=== PATIENT | female | born 1945 | race Hispanic/Latino ===

== ENCOUNTER 2017-07-03 13:51 | Emergency (ER) | payer SELFPAY ==
[2017-07-03 14:12] VITALS: BP 148/72
[2017-07-03 14:45] LABS: Anion Gap 20 mmol/L; BUN/Creatinine Ratio 20; Blood Urea Nitrogen 22 mg/dL (7-17); Calcium 8.8 mg/dL (8.4-10.2); Carbon Dioxide 23 mmol/L (22-30); Chloride 99.9 mmol/L (98-107); Glucose 190 mg/dL (65-100); Potassium 4.4 mmol/L (3.6-5.0); Sodium 138 mmol/L (137-145)
[2017-07-03 14:58] LABS: Basophils % (Auto) 1.2 % (0.0-1.8); Eosinophils % (Auto) 3.3 % (0.0-4.3); Hematocrit 37.5 % (30.3-42.9); Mean Corpuscular HGB Conc 32 % (30-34); Mean Corpuscular Hemoglobin 28 pg (28-32); Mean Corpuscular Volume 86 fl (79-97); Platelet Count 495 K/mm3 (140-440); Red Blood Count 4.35 M/mm3 (3.65-5.03); Red Cell Distribution Width 15.4 % (13.2-15.2); White Blood Count 10.1 K/mm3 (4.5-11.0)
== END 2017-07-03 14:15 | disposition left against medical advice (07) ==
LOC: ED 13:51
DX: R07.9 Chest pain, unspecified (principal); Z53.21 Procedure and treatment not carried out due to patient leaving prior to being seen by health care provider
CPT/HCPCS: 36415; 80048; 84484; 85025; 93005; 93010

== ENCOUNTER 2018-02-06 06:30 | Day surgery (SDC) | payer MEDICARE ==
[~2018-02-06 06:30] MED LIST: TETRACAINE 0.5% OS PRN
[2018-02-06] MEDS: MYDRIACYL OS SCH ×3 (07:30→07:40)
[2018-02-06] MEDS: AK-Dilate OS SCH ×3 (07:30→07:40)
[2018-02-06] MEDS: VIGAMOX OS SCH ×3 (07:30→07:40)
[2018-02-06] MEDS ORDERED: VERSED ONE ×2 (07:32→09:16)
--- NOTE | 2018-02-06 07:48 | Anesthesia Consultation ---
Anesthesia Consult and Med Hx Date of service: 02/06/18 - Airway Anesthetic Teeth Evaluation: Poor ROM Head & Neck: Adequate Mental/Hyoid Distance: Adequate Mallampati Class: Class I Intubation Access Assessment: Good - Pulmonary Exam CTA: Yes - Cardiac Exam Cardiac Exam: RRR - Pre-Operative Health Status ASA Pre-Surgery Classification: ASA3 Proposed Anesthetic Plan: MAC - Pulmonary Hx Smoking: Yes (DOWN TO 3CIG/DAY, STARTED AT AGE 10) COPD: Yes - Cardiovascular System Hx Hypertension: Yes (2004) - Other Systems Hx Alcohol Use: No Hx Substance Use: Yes (MARIJUANA) - Additional Comments Anesthesia Medical History Comments: NAC
--- NOTE | 2018-02-06 07:49 | Anesthesia Day of Surgery ---
Anesthesia Day of Surgery - Day of Surgery Patient Examined: Yes Patient H&P Reviewed: Yes Patient is NPO: Yes
[2018-02-06] MEDS ORDERED: DIAMOX PO NR (09:34)
--- NOTE | 2018-02-06 09:35 | Operative Report ---
Operative Report Operative Report: PATIENT'S NAME: DATE OF : DATE OF SURGERY: 02/06/2018 PREOPERATIVE DIAGNOSIS: Cataract left eye POSTOPERATIVE DIAGNOSIS: Same OPERATIVE PROCEDURE: Phacoemulsification with intraocular lens implantation, left eye SURGEON: Didi Toledo M.D. PATTERN CHANGER SURGEON: Hero Lens: SA60 WF 19.5 D ANESTHESIA: Monitored anesthesia care in combination with topical and intracameral anesthesia because of the established specific risk of reflux, arrhythmias, or anxiety attacks associated with ocular manipulation, as well as the difficulty of the executive director of nursing to manage such potentially catastrophic events while simultaneously attempting to complete the surgical procedure and was deemed necessary for the patient's safety to have an Rn Transport present during the procedure whenever possible. An Rn Transport was utilized to regulate the intravenous sedation of the patient so the patient was cooperative yet not asleep in order for the patient to successfully maintain fixation of the eye on the operating light of the microscope. COMPLICATIONS: Anterior capsular rent at 3:00 No blood loss. ALLERGIES: Penicillin PROGNOSIS: Excellent INDICATIONS FOR SURGERY: The patient is undergoing surgery in the hopes of eliminating or improving these visual difficulties. PROCEDURE: After arriving at the surgery center, the patient was given topical anesthetic and dilating drops, as noted in the record. The patient was then taken into the operating room and given more anesthetic drops. The eyelids , lashes, and lid margins were scrubbed with Betadine solution, and the patient was draped. The Nurse Rn Transport administered IV sedation and monitored the patient during the procedure. The eye was then fixated with a 0.12, and a stab incision was made in the peripheral clear cornea into the anterior chamber. This was made on my left side. Viscoelastic was next used to fill the anterior chamber. The eye was once again fixated with the 0.12 forceps and a keratome was used make an incision in clear cornea peripherally on my right hand side temporally. The capsule forceps were used to open the central anterior capsule and then make a continuous round capsulotomy. Hydrodissection was carried out utilizing a cannula and balanced salt solution to delineate the cortical material from the capsule and the nucleus from the cortical material. The phaco tip was introduced into the eye and used to remove the anterior cortical material in the area of the capsulotomy. Then the phaco tip was buried into the nucleus, and a chopping instrument was introduced into the eye and used to provide countertraction in the nucleus between this instrument and the phaco tip fracturing the nucleus. This procedure was repeated multiple times, providing multiple small segments of the lens, and then the phaco tip was used to remove each of these segments. An I/A tip was then used to remove the remaining cortex. The anterior chamber was refilled with viscoelastic. An one-piece, acrylic intraocular lens was then placed into an inserting cartridge. The tip of the inserting cartridge was introduced into the keratome incision and into the anterior chamber. The implant was gently advanced through the cartridge and into the eye, where it unfolded, and both haptics were placed in the capsular bag, where it centered nicely and appeared to be well fixated. After placement of the intraocular lens, the I~and~A handpiece was placed back into the eye and used to remove the viscoelastic, including viscoelastic that was behind the optic of the intraocular lens. The anterior chamber was then filled with balanced salt solution, and hydration of the wound was used to cause swelling of the wound and more appropriate watertight closure. When the wound was found to be firm, the patient was asked to comment on how bright the light was. If there was no light perception at all or if the light was substantially dimmer than during the rest of the surgery, the amount of fluid in the eye was decompressed to lower the intraocular pressure until the patient could see the bright light again. This was done to avoid any damage or decreased blood flow to the optic nerve. MEDICATIONS APPLIED AT END OF SURGERY: One drop of Pred Forte and Vigamox The patient was given a shield to wear at night and was instructed not to rub or push on the eye. DISCHARGE SUMMARY: The patient was released in stable condition. The patient and those with the patient were given a written sheet of postoperative instructions and counseling on any abnormal laboratory studies. The patient is to see us tomorrow for follow-up in the office and is to call immediately for any difficulties. Didi Toledo M.D. Date
--- NOTE | 2018-02-06 09:36 | Short Stay Summary ---
Short Stay Documentation Date of service: 02/06/18 - History H&P: obtained from office - Allergies and Medications Current Medications: Allergies Penicillins Allergy (Verified 02/05/18 12:01) Anaphylaxis Home Medications Medication Instructions Recorded Confirmed Last Taken Type FLUoxetine HCL [PROzac] 40 mg PO QDAY 02/05/18 02/05/18 02/06/18 05:30 History Gabapentin [Neurontin] 300 mg PO Q8HR 02/05/18 02/06/18 02/06/18 05:30 History Hydroxyzine HCl 25 mg PO DAILY 02/05/18 02/05/18 02/06/18 05:30 History Metformin HCl [Glucophage] 500 mg PO BID 02/05/18 02/06/18 02/05/18 History amLODIPine [Norvasc] 5 mg PO DAILY 02/05/18 02/05/18 02/06/18 05:30 History Active Medications Acetazolamide (Diamox) 500 mg PO ONCE ONE Stop: 02/06/18 09:35 Moxifloxacin HCl (Vigamox) 1 drops OS Q5MIN JOANNE Stop: 02/06/18 19:00 Last Admin: 02/06/18 07:40 Dose: 1 drops Phenylephrine HCl (Ak-Dilate) 1 drops OS Q5MIN JOANNE Stop: 02/06/18 19:00 Last Admin: 02/06/18 07:40 Dose: 1 drops Prednisolone Acetate (Pred Forte 1%) 1 drops OS QID JOANNE Tetracaine HCl (Tetracaine 0.5%) 1 drops OS Q5M PRN PRN Reason: Analgesia Stop: 02/06/18 19:00 Last Admin: 02/06/18 07:30 Dose: 1 drops Tropicamide (Mydriacyl) 1 drops OS Q5MIN JOANNE Stop: 02/06/18 19:00 Last Admin: 02/06/18 07:40 Dose: 1 drops - Brief post op/procedure progress note Date of procedure: 02/06/18 Pre-op diagnosis: left cataract Post-op diagnosis: same Anesthesia: MAC, local Surgeon: JOSE MIGUEL NICHOLE Estimated blood loss: none Pathology: none Condition: stable - Disposition Condition at discharge: Good Disposition: DC-01 TO HOME OR SELFCARE - Discharge Diagnoses (1) Nuclear sclerosis of left eye Status: Resolved Short Stay Discharge Plan Follow up with: AISLINN KAUR [Other] - 7 Days
[2018-02-06] MEDS ORDERED: PRED FORTE 1% OS SCH (10:00)
[2018-02-06] MEDS ORDERED: TIMOPTIC OU ONE (10:30)
--- NOTE | 2018-02-06 11:04 | Post Anesthesia Evaluation ---
- Post Anesthesia Evaluation Patient Participated: Yes Airway Patent: Yes Stable Respiratory Function: Yes Nausea/Vomiting: No Temp > 96.8F: Yes Pain Manageable: Yes Adequeate Hydration: Yes Anesthesia Complications: No
[2018-02-06] MEDS ORDERED: TYLENOL PO NR (11:06)
[2018-02-06 18:09] VITALS: BP 160/81
== END 2018-02-06 11:22 | disposition home or self-care (01) ==
LOC: OR 06:30
DX: H25.12 Age-related nuclear cataract, left eye (principal); J44.9 Chronic obstructive pulmonary disease, unspecified; M19.90 Unspecified osteoarthritis, unspecified site; I10 Essential (primary) hypertension; F17.210 Nicotine dependence, cigarettes, uncomplicated; E11.36 Type 2 diabetes mellitus with diabetic cataract; Z79.899 Other long term (current) drug therapy; Z79.84 Long term (current) use of oral hypoglycemic drugs; Z88.0 Allergy status to penicillin
CPT/HCPCS: 66984; 82962; J2250; V2632

== ENCOUNTER 2018-02-20 06:51 | Day surgery (SDC) | payer MEDICARE ==
[~2018-02-20 06:51] MED LIST changes: +TETRACAINE 0.5% OD SCH; -TETRACAINE 0.5% OS PRN
[2018-02-20] MEDS: VIGAMOX OD SCH ×3 (07:30→07:40)
[2018-02-20] MEDS: AK-Dilate OD SCH ×3 (07:30→07:41)
[2018-02-20] MEDS: MYDRIACYL OD SCH ×3 (07:30→07:40)
[2018-02-20] MEDS ORDERED: NACL BACTERIOSTATIC INFILTRATI ONE (07:43)
[2018-02-20] MEDS ORDERED: PROVENTIL IH NR (08:00)
--- NOTE | 2018-02-20 08:01 | Anesthesia Consultation ---
Anesthesia Consult and Med Hx Date of service: 02/20/18 - Airway Anesthetic Teeth Evaluation: Poor ROM Head & Neck: Adequate Mental/Hyoid Distance: Adequate Mallampati Class: Class I Intubation Access Assessment: Probably Good - Pulmonary Exam CTA: Yes - Cardiac Exam Cardiac Exam: RRR - Pre-Operative Health Status ASA Pre-Surgery Classification: ASA3 Proposed Anesthetic Plan: MAC - Pulmonary Hx Smoking: Yes (3CIG/DAY) COPD: Yes - Cardiovascular System Hx Hypertension: Yes (SINCE HER 60'S) - Central Nervous System Hx Psychiatric Problems: Yes - Other Systems Hx Alcohol Use: No Hx Substance Use: Yes (MARIJUANA) Hx Cancer: Yes - Additional Comments Anesthesia Medical History Comments: had similar procedure done on the other eye on 02/06. tolerated procedure and anesthesia well
--- NOTE | 2018-02-20 08:01 | Anesthesia Day of Surgery ---
Anesthesia Day of Surgery - Day of Surgery Patient Examined: Yes Patient H&P Reviewed: Yes Patient is NPO: Yes
[2018-02-20] MEDS ORDERED: SUBLIMAZE ONE (08:04)
[2018-02-20] MEDS ORDERED: VERSED ONE (08:04)
[2018-02-20] MEDS ORDERED: DIAMOX PO NR (08:57)
--- NOTE | 2018-02-20 08:58 | Operative Report ---
Operative Report Operative Report: PATIENT'S NAME: DATE OF : DATE OF SURGERY: 02/20/2018 PREOPERATIVE DIAGNOSIS: Cataract right eye POSTOPERATIVE DIAGNOSIS: Same OPERATIVE PROCEDURE: Phacoemulsification with intraocular lens implantation, right eye SURGEON: Didi Toledo M.D. SCOURING TRAIN OPERATOR SURGEON: Hero Lens: [id number] 19.5 D ANESTHESIA: Monitored anesthesia care in combination with topical and intracameral anesthesia because of the established specific risk of reflux, arrhythmias, or anxiety attacks associated with ocular manipulation, as well as the difficulty of the supplier quality manager to manage such potentially catastrophic events while simultaneously attempting to complete the surgical procedure and was deemed necessary for the patient's safety to have an Pulmonology Physician present during the procedure whenever possible. An Pulmonology Physician was utilized to regulate the intravenous sedation of the patient so the patient was cooperative yet not asleep in order for the patient to successfully maintain fixation of the eye on the operating light of the microscope. COMPLICATIONS: o surgical complications No blood loss. ALLERGIES: Penicillin PROGNOSIS: Excellent INDICATIONS FOR SURGERY: The patient is undergoing surgery in the hopes of eliminating or improving these visual difficulties. PROCEDURE: After arriving at the surgery center, the patient was given topical anesthetic and dilating drops, as noted in the record. The patient was then taken into the operating room and given more anesthetic drops. The eyelids , lashes, and lid margins were scrubbed with Betadine solution, and the patient was draped. The Nurse Pulmonology Physician administered IV sedation and monitored the patient during the procedure. The eye was then fixated with a 0.12, and a stab incision was made in the peripheral clear cornea into the anterior chamber. This was made on my left side. Viscoelastic was next used to fill the anterior chamber. The eye was once again fixated with the 0.12 forceps and a keratome was used make an incision in clear cornea peripherally on my right hand side temporally. The capsule forceps were used to open the central anterior capsule and then make a continuous round capsulotomy. Hydrodissection was carried out utilizing a cannula and balanced salt solution to delineate the cortical material from the capsule and the nucleus from the cortical material. The phaco tip was introduced into the eye and used to remove the anterior cortical material in the area of the capsulotomy. Then the phaco tip was buried into the nucleus, and a chopping instrument was introduced into the eye and used to provide countertraction in the nucleus between this instrument and the phaco tip fracturing the nucleus. This procedure was repeated multiple times, providing multiple small segments of the lens, and then the phaco tip was used to remove each of these segments. An I/A tip was then used to remove the remaining cortex. The anterior chamber was refilled with viscoelastic. An one-piece, acrylic intraocular lens was then placed into an inserting cartridge. The tip of the inserting cartridge was introduced into the keratome incision and into the anterior chamber. The implant was gently advanced through the cartridge and into the eye, where it unfolded, and both haptics were placed in the capsular bag, where it centered nicely and appeared to be well fixated. After placement of the intraocular lens, the I~and~A handpiece was placed back into the eye and used to remove the viscoelastic, including viscoelastic that was behind the optic of the intraocular lens. The anterior chamber was then filled with balanced salt solution, and hydration of the wound was used to cause swelling of the wound and more appropriate watertight closure. When the wound was found to be firm, the patient was asked to comment on how bright the light was. If there was no light perception at all or if the light was substantially dimmer than during the rest of the surgery, the amount of fluid in the eye was decompressed to lower the intraocular pressure until the patient could see the bright light again. This was done to avoid any damage or decreased blood flow to the optic nerve. MEDICATIONS APPLIED AT END OF SURGERY: One drop of Pred Forte and Vigamox The patient was given a shield to wear at night and was instructed not to rub or push on the eye. DISCHARGE SUMMARY: The patient was released in stable condition. The patient and those with the patient were given a written sheet of postoperative instructions and counseling on any abnormal laboratory studies. The patient is to see us tomorrow for follow-up in the office and is to call immediately for any difficulties. Didi Toledo M.D. Date
--- NOTE | 2018-02-20 08:59 | Short Stay Summary ---
Short Stay Documentation Date of service: 02/20/18 - History H&P: obtained from office - Allergies and Medications Current Medications: Allergies Penicillins Allergy (Verified 02/19/18 11:56) Anaphylaxis Home Medications Medication Instructions Recorded Confirmed Last Taken Type FLUoxetine HCL [PROzac] 40 mg PO QDAY 02/05/18 02/20/18 02/20/18 05:30 History Gabapentin [Neurontin] 300 mg PO Q8HR 02/05/18 02/20/18 02/19/18 History Hydroxyzine HCl 25 mg PO DAILY 02/05/18 02/20/18 02/20/18 05:30 History Metformin HCl [Glucophage] 500 mg PO BID 02/05/18 02/20/18 02/19/18 History amLODIPine [Norvasc] 5 mg PO DAILY 02/05/18 02/20/18 02/20/18 05:30 History ALBUTEROL Inhaler [Proair] 2 puff IH QID PRN 02/20/18 02/20/18 02/20/18 05:30 History Active Medications Acetazolamide (Diamox) 500 mg PO ONCE ONE Stop: 02/20/18 08:58 Albuterol (Proventil) 2.5 mg IH PREOP NR Stop: 02/20/18 11:00 Last Admin: 02/20/18 08:04 Dose: 2.5 mg Moxifloxacin HCl (Vigamox) 1 drops OD Q5MIN JOANNE Stop: 02/20/18 23:59 Last Admin: 02/20/18 07:40 Dose: 1 drops Phenylephrine HCl (Ak-Dilate) 1 drops OD Q5MIN JOANNE Stop: 02/20/18 23:59 Last Admin: 02/20/18 07:41 Dose: 1 drops Prednisolone Acetate (Pred Forte 1%) 1 drops OD QID JOANNE Tetracaine HCl (Tetracaine 0.5%) 1 drops OD Q5M JOANNE Stop: 02/20/18 23:59 Last Admin: 02/20/18 07:30 Dose: 1 drops Tropicamide (Mydriacyl) 1 drops OD Q5MIN JOANNE Stop: 02/20/18 23:59 Last Admin: 02/20/18 07:40 Dose: 1 drops - Brief post op/procedure progress note Date of procedure: 02/20/18 Pre-op diagnosis: right cataract Post-op diagnosis: same Procedure: Phacoemulsification with intraocular lens insertion right eye Anesthesia: MAC, local Surgeon: JOSE MIGUEL NICHOLE Estimated blood loss: none Pathology: none Condition: stable - Disposition Condition at discharge: Good Disposition: DC-01 TO HOME OR SELFCARE - Discharge Diagnoses (1) Nuclear sclerosis of right eye Status: Resolved Short Stay Discharge Plan Follow up with: PRIMARY CARE, [Primary Care Provider] - 7 Days
[2018-02-20 09:19] VITALS: BP 145/71
[2018-02-20] MEDS ORDERED: PRED FORTE 1% OD SCH (10:00)
== END 2018-02-20 06:52 | disposition home or self-care (01) ==
LOC: OR 06:51
DX: E11.36 Type 2 diabetes mellitus with diabetic cataract (principal); I10 Essential (primary) hypertension; J44.9 Chronic obstructive pulmonary disease, unspecified; F17.210 Nicotine dependence, cigarettes, uncomplicated; Z88.0 Allergy status to penicillin; Z79.899 Other long term (current) drug therapy
CPT/HCPCS: 66984; 82962; J2250; J3010; V2632

== ENCOUNTER 2018-05-26 12:21 | Emergency (ER) | payer MEDICARE ==
[2018-05-26] MEDS ORDERED: NACL 0.9% 1000 ML 1,000 ML IV ONE (12:46)
[2018-05-26 13:37] LABS: Hemoglobin 14.3 gm/dl (10.1-14.3); Mean Corpuscular HGB Conc 33 % (30-34); Mean Corpuscular Hemoglobin 30 pg (28-32); Mean Corpuscular Volume 90 fl (79-97); Platelet Count 464 K/mm3 (140-440); Red Blood Count 4.77 M/mm3 (3.65-5.03)
[2018-05-26 13:52] LABS: Albumin 4.1 g/dL (3.9-5); Calcium 9.4 mg/dL (8.4-10.2)
[2018-05-26 14:33] LABS: Basophils # (Auto) 0.1 K/mm3 (0.0-0.1); Eosinophils # (Auto) 0.2 K/mm3 (0.0-0.4); Eosinophils % (Auto) 2.1 % (0.0-4.3); Lymphocytes % (Auto) 27.7 % (13.4-35.0); Monocytes # (Auto) 0.7 K/mm3 (0.0-0.8); Monocytes % (Auto) 9.2 % (0.0-7.3)
[2018-05-26 14:35] LABS: Basophils % (Auto) 1.9 % (0.0-1.8)
[2018-05-27] MEDS ORDERED: ZOFRAN IV ONE (00:15)
[2018-05-27] MEDS ORDERED: NACL 0.9% 1000 ML 1,000 ML IV ONE (00:15)
[2018-05-27] MEDS ORDERED: NACL 0.9% 500 ML 500 ML IV ONE (00:16)
--- NOTE | 2018-05-27 00:16 | Emergency Department Report ---
ED Psych HPI - General Chief Complaint: Psych Stated Complaint: DIARRHEA/N/V Time Seen by Provider: 05/26/18 23:36 Source: EMS Mode of arrival: Ambulatory Limitations: No Limitations - History of Present Illness Initial Comments: 73-year-old female with a past medical history of COPD, diabetes, depression, gastric ulcers, previous cholecystectomy and previous hysterectomy, and chronic back pain presents to the Hospital complaining of nausea, vomiting and diarrhea 2 days. Patient is having nausea with dry heaves with decreased by mouth intake. She states she is having frequent loose stools that are too many to count. She complains entering cramping lower abdominal pain with palpation and moderate in intensity. Patient states she has been homeless 1 year and went to live with her grandson in [place] temporarily but that did not work out. For the last 5 months she has been staying with her friend and her family. It has appeared she is out stayed her and she is feeling suicidal because she does not have where else to go - Related Data Home Medications Medication Instructions Recorded Confirmed Last Taken FLUoxetine HCL [PROzac] 40 mg PO QDAY 02/05/18 02/20/18 02/20/18 05:30 Gabapentin [Neurontin] 300 mg PO Q8HR 02/05/18 02/20/18 02/19/18 Metformin HCl [Glucophage] 500 mg PO BID 02/05/18 02/20/18 02/19/18 amLODIPine [Norvasc] 5 mg PO DAILY 02/05/18 02/20/18 02/20/18 05:30 hydrOXYzine HCl [Hydroxyzine HCl] 25 mg PO DAILY 02/05/18 02/20/18 02/20/18 05: 30 ALBUTEROL Inhaler (OR & NICU) 2 puff IH QID PRN 02/20/18 02/20/18 02/20/18 05:30 [Proair] Allergies Allergy/AdvReac Type Severity Reaction Status Date / Time Penicillins Allergy Anaphylaxis Verified 02/19/18 11:56 ED Review of Systems ROS: Stated complaint: DIARRHEA/N/V Other details as noted in HPI Comment: All other systems reviewed and negative ED Past Medical Hx - Past Medical History Hx Congestive Heart Failure: Yes Hx Diabetes: Yes Hx Psychiatric Treatment: Yes (Major Depression, self harm) Hx COPD: Yes Additional medical history: gastric ulcers, back pain, Blood disease called profier - Surgical History Hx Cholecystectomy: Yes Additional Surgical History: Hysterectomy - Social History Smoking Status: Current Every Day Smoker Substance Use Type: Marijuana - Medications Home Medications: Home Medications Medication Instructions Recorded Confirmed Last Taken Type FLUoxetine HCL [PROzac] 40 mg PO QDAY 02/05/18 02/20/18 02/20/18 05:30 History Gabapentin [Neurontin] 300 mg PO Q8HR 02/05/18 02/20/18 02/19/18 History Metformin HCl [Glucophage] 500 mg PO BID 02/05/18 02/20/18 02/19/18 History amLODIPine [Norvasc] 5 mg PO DAILY 02/05/18 02/20/18 02/20/18 05:30 History hydrOXYzine HCl [Hydroxyzine HCl] 25 mg PO DAILY 02/05/18 02/20/18 02/20/18 05: 30 History ALBUTEROL Inhaler (OR & NICU) 2 puff IH QID PRN 02/20/18 02/20/18 02/20/18 05: 30 History [Proair] ED Physical Exam - General Limitations: No Limitations - Other Other exam information: General: No limitations, patient is alert in no acute distress Head exam: Atraumatic, normocephalic Eyes exam: Normal appearance ENT: Moist mucous membrane, normal oropharynx Neck exam: Normal inspection, full range of motion Respiratory exam: Clear to auscultation bilateral, no wheezes, rales, crackles Cardiovascular: Normal rate and rhythm, normal heart sounds Abdomen: Soft, nondistended, mild lower abdominal tenderness, with normal bowel sounds, no rebound, or guarding Extremity: Full range of motion normal inspection no deformity Back: Normal Inspection, full range of motion, no tenderness Neurologic: Alert, oriented x3, cranial nerves intact, no motor or sensory deficit Psychiatric: normal affect, normal mood Skin: Warm, dry, intact ED Course Vital Signs 05/26/18 05/26/18 05/27/18 12:38 23:03 00:00 Temperature 98.2 F 98.0 F Pulse Rate 99 H 99 H Respiratory 22 18 16 Rate Blood Pressure 169/94 162/91 Blood Pressure [Right] O2 Sat by Pulse 99 97 Oximetry 05/27/18 05/27/18 05/27/18 07:41 07:45 08:00 Temperature Pulse Rate 88 85 Respiratory 13 14 15 Rate Blood Pressure 157/78 148/82 Blood Pressure [Right] O2 Sat by Pulse 93 95 Oximetry 05/27/18 05/27/18 05/27/18 09:28 09:30 09:45 Temperature Pulse Rate 87 86 80 Respiratory 17 20 22 Rate Blood Pressure 179/87 170/85 164/77 Blood Pressure [Right] O2 Sat by Pulse 94 93 94 Oximetry 05/27/18 05/27/18 05/27/18 10:00 10:15 10:30 Temperature Pulse Rate 83 87 89 Respiratory 23 19 16 Rate Blood Pressure 152/71 Blood Pressure [Right] O2 Sat by Pulse 93 94 93 Oximetry 05/27/18 05/27/18 05/27/18 10:45 11:00 11:46 Temperature 98.1 F Pulse Rate 85 105 H Respiratory 16 19 Rate Blood Pressure 165/82 Blood Pressure [Right] O2 Sat by Pulse 94 Oximetry 05/27/18 19:30 Temperature 98.4 F Pulse Rate 90 Respiratory 16 Rate Blood Pressure Blood Pressure 135/81 [Right] O2 Sat by Pulse 95 Oximetry ED Medical Decision Making - Lab Data Result diagrams: 05/26/18 13:10 05/26/18 13:10 Lab Results 05/26/18 05/26/18 05/26/18 Range/Units 13:10 13:10 13:10 WBC 7.0 (4.5-11.0) K/mm3 RBC 4.77 (3.65-5.03) M/mm3 Hgb 14.3 (10.1-14.3) gm/dl Hct 43.0 H (30.3-42.9) % MCV 90 (79-97) fl MCH 30 (28-32) pg MCHC 33 (30-34) % RDW 15.0 (13.2-15.2) % Plt Count 464 H (140-440) K/mm3 Lymph % (Auto) 27.7 (13.4-35.0) % [place] % (Auto) 9.2 H (0.0-7.3) % Eos % (Auto) 2.1 (0.0-4.3) % Baso % (Auto) 1.9 H (0.0-1.8) % Lymph # 2.0 (1.2-5.4) K/mm3 [place] # 0.7 (0.0-0.8) K/mm3 Eos # 0.2 (0.0-0.4) K/mm3 Baso # 0.1 (0.0-0.1) K/mm3 Add Manual Diff Complete Seg Neutrophils % 59.1 (40.0-70.0) % Nucleated RBC % Not Reportable Seg Neutrophils # 4.2 (1.8-7.7) K/mm3 WBC Morphology Not Reportable Hypersegmented Neuts Not Reportable Hyposegmented Neuts Not Reportable Hypogranular Neuts Not Reportable Smudge Cells Not Reportable Toxic Granulation Not Reportable Toxic Vacuolation Not Reportable Dohle Bodies Not Reportable Pelger-Huet Anomaly Not Reportable Maxim Rods Not Reportable Platelet Estimate Not Reportable Clumped Platelets Not Reportable Plt Clumps, EDTA Not Reportable Large Platelets Not Reportable Giant Platelets Not Reportable Platelet Satelliting Not Reportable Plt Morphology Comment Not Reportable RBC Morphology Not Reportable Dimorphic RBCs Not Reportable Polychromasia Not Reportable Hypochromasia Not Reportable Poikilocytosis Not Reportable Anisocytosis Not Reportable Microcytosis Not Reportable Macrocytosis Not Reportable Spherocytes Not Reportable Pappenheimer Bodies Not Reportable Sickle Cells Not Reportable Target Cells Not Reportable Tear Drop Cells Not Reportable Ovalocytes Not Reportable Helmet Cells Not Reportable Leary-Rusk Bodies Not Reportable Brooks Rings Not Reportable [place] Cells Not Reportable Bite Cells Not Reportable Crenated Cell Not Reportable Elliptocytes Not Reportable Acanthocytes (Spur) Not Reportable Rouleaux Not Reportable Hemoglobin C Crystals Not Reportable Schistocytes Not Reportable Malaria parasites Not Reportable All Bodies Not Reportable Hem Pathologist Commnt Not Reportable Sodium (137-145) mmol/L Potassium (3.6-5.0) mmol/L Chloride (98-107) mmol/L Carbon Dioxide (22-30) mmol/L Anion Gap mmol/L BUN (7-17) mg/dL Creatinine (0.7-1.2) mg/dL Estimated GFR ml/min BUN/Creatinine Ratio % Glucose (65-100) mg/dL Calcium (8.4-10.2) mg/dL Total Bilirubin (0.1-1.2) mg/dL AST (5-40) units/L ALT (7-56) units/L Alkaline Phosphatase (35-129) units/L Total Protein (6.3-8.2) g/dL Albumin (3.9-5) g/dL Albumin/Globulin Ratio % Lipase (13-60) units/L Urine Color (Yellow) Urine Turbidity (Clear) Urine pH (5.0-7.0) Ur Specific [place] (1.003-1.030) Urine Protein (Negative) mg/dL Urine Glucose (UA) (Negative) mg/dL Urine Ketones (Negative) mg/dL Urine Blood (Negative) Urine Nitrite (Negative) Urine Bilirubin (Negative) Urine Urobilinogen (<2.0) mg/dL Ur Leukocyte Esterase (Negative) Urine WBC (Auto) (0.0-6.0) /HPF Urine RBC (Auto) (0.0-6.0) /HPF U Epithel Cells (Auto) (0-13.0) /HPF Urine Mucus /HPF Salicylates < 0.3 L (2.8-20.0) mg/dL Urine Opiates Screen Urine Methadone Screen Acetaminophen < 5.0 L (10.0-30.0) ug/mL Ur Barbiturates Screen Ur Phencyclidine Scrn Ur Amphetamines Screen U Benzodiazepines Scrn Urine Cocaine Screen U Marijuana (THC) Screen Drugs of Abuse Note Plasma/Serum Alcohol (0-0.07) % 05/26/18 05/26/18 05/27/18 Range/Units 13:10 13:10 07:44 WBC (4.5-11.0) K/mm3 RBC (3.65-5.03) M/mm3 Hgb (10.1-14.3) gm/dl Hct (30.3-42.9) % MCV (79-97) fl MCH (28-32) pg MCHC (30-34) % RDW (13.2-15.2) % Plt Count (140-440) K/mm3 Lymph % (Auto) (13.4-35.0) % [place] % (Auto) (0.0-7.3) % Eos % (Auto) (0.0-4.3) % Baso % (Auto) (0.0-1.8) % Lymph # (1.2-5.4) K/mm3 [place] # (0.0-0.8) K/mm3 Eos # (0.0-0.4) K/mm3 Baso # (0.0-0.1) K/mm3 Add Manual Diff Seg Neutrophils % (40.0-70.0) % Nucleated RBC % Seg Neutrophils # (1.8-7.7) K/mm3 WBC Morphology Hypersegmented Neuts Hyposegmented Neuts Hypogranular Neuts Smudge Cells Toxic Granulation Toxic Vacuolation Dohle Bodies Pelger-Huet Anomaly Maxim Rods Platelet Estimate Clumped Platelets Plt Clumps, EDTA Large Platelets Giant Platelets Platelet Satelliting Plt Morphology Comment RBC Morphology Dimorphic RBCs Polychromasia Hypochromasia Poikilocytosis Anisocytosis Microcytosis Macrocytosis Spherocytes Pappenheimer Bodies Sickle Cells Target Cells Tear Drop Cells Ovalocytes Helmet Cells Leary-Rusk Bodies Brooks Rings [place]ridge Cells Bite Cells Crenated Cell Elliptocytes Acanthocytes (Spur) Rouleaux Hemoglobin C Crystals Schistocytes Malaria parasites All Bodies Hem Pathologist Commnt Sodium 134 L (137-145) mmol/L Potassium 5.0 (3.6-5.0) mmol/L Chloride 99.1 (98-107) mmol/L Carbon Dioxide 20 L (22-30) mmol/L Anion Gap 20 mmol/L BUN 17 (7-17) mg/dL Creatinine 1.0 (0.7-1.2) mg/dL Estimated GFR 54 ml/min BUN/Creatinine Ratio 17 % Glucose 174 H (65-100) mg/dL Calcium 9.4 (8.4-10.2) mg/dL Total Bilirubin 0.30 (0.1-1.2) mg/dL AST 28 (5-40) units/L ALT 27 (7-56) units/L Alkaline Phosphatase 93 (35-129) units/L Total Protein 8.0 (6.3-8.2) g/dL Albumin 4.1 (3.9-5) g/dL Albumin/Globulin Ratio 1.1 % Lipase 48 (13-60) units/L Urine Color Yellow (Yellow) Urine Turbidity Clear (Clear) Urine pH 5.0 (5.0-7.0) Ur Specific [place] 1.060 H (1.003-1.030) Urine Protein 100 mg/dl (Negative) mg/dL Urine Glucose (UA) Neg (Negative) mg/dL Urine Ketones Tr (Negative) mg/dL Urine Blood Sm (Negative) Urine Nitrite Neg (Negative) Urine Bilirubin Neg (Negative) Urine Urobilinogen < 2.0 (<2.0) mg/dL Ur Leukocyte Esterase Neg (Negative) Urine WBC (Auto) 4.0 (0.0-6.0) /HPF Urine RBC (Auto) 4.0 (0.0-6.0) /HPF U Epithel Cells (Auto) 3.0 (0-13.0) /HPF Urine Mucus Few /HPF Salicylates (2.8-20.0) mg/dL Urine Opiates Screen Urine Methadone Screen Acetaminophen (10.0-30.0) ug/mL Ur Barbiturates Screen Ur Phencyclidine Scrn Ur Amphetamines Screen U Benzodiazepines Scrn Urine Cocaine Screen U Marijuana (THC) Screen Drugs of Abuse Note Plasma/Serum Alcohol < 0.01 (0-0.07) % 05/27/18 Range/Units 07:44 WBC (4.5-11.0) K/mm3 RBC (3.65-5.03) M/mm3 Hgb (10.1-14.3) gm/dl Hct (30.3-42.9) % MCV (79-97) fl MCH (28-32) pg MCHC (30-34) % RDW (13.2-15.2) % Plt Count (140-440) K/mm3 Lymph % (Auto) (13.4-35.0) % [place] % (Auto) (0.0-7.3) % Eos % (Auto) (0.0-4.3) % Baso % (Auto) (0.0-1.8) % Lymph # (1.2-5.4) K/mm3 [place] # (0.0-0.8) K/mm3 Eos # (0.0-0.4) K/mm3 Baso # (0.0-0.1) K/mm3 Add Manual Diff Seg Neutrophils % (40.0-70.0) % Nucleated RBC % Seg Neutrophils # (1.8-7.7) K/mm3 WBC Morphology Hypersegmented Neuts Hyposegmented Neuts Hypogranular Neuts Smudge Cells Toxic Granulation Toxic Vacuolation Dohle Bodies Pelger-Huet Anomaly Maxim Rods Platelet Estimate Clumped Platelets Plt Clumps, EDTA Large Platelets Giant Platelets Platelet Satelliting Plt Morphology Comment RBC Morphology Dimorphic RBCs Polychromasia Hypochromasia Poikilocytosis Anisocytosis Microcytosis Macrocytosis Spherocytes Pappenheimer Bodies Sickle Cells Target Cells Tear Drop Cells Ovalocytes Helmet Cells Leary-Rusk Bodies Brooks Rings [place] Cells Bite Cells Crenated Cell Elliptocytes Acanthocytes (Spur) Rouleaux Hemoglobin C Crystals Schistocytes Malaria parasites All Bodies Hem Pathologist Commnt Sodium (137-145) mmol/L Potassium (3.6-5.0) mmol/L Chloride (98-107) mmol/L Carbon Dioxide (22-30) mmol/L Anion Gap mmol/L BUN (7-17) mg/dL Creatinine (0.7-1.2) mg/dL Estimated GFR ml/min BUN/Creatinine Ratio % Glucose (65-100) mg/dL Calcium (8.4-10.2) mg/dL Total Bilirubin (0.1-1.2) mg/dL AST (5-40) units/L ALT (7-56) units/L Alkaline Phosphatase (35-129) units/L Total Protein (6.3-8.2) g/dL Albumin (3.9-5) g/dL Albumin/Globulin Ratio % Lipase (13-60) units/L Urine Color (Yellow) Urine Turbidity (Clear) Urine pH (5.0-7.0) Ur Specific [place] (1.003-1.030) Urine Protein (Negative) mg/dL Urine Glucose (UA) (Negative) mg/dL Urine Ketones (Negative) mg/dL Urine Blood (Negative) Urine Nitrite (Negative) Urine Bilirubin (Negative) Urine Urobilinogen (<2.0) mg/dL Ur Leukocyte Esterase (Negative) Urine WBC (Auto) (0.0-6.0) /HPF Urine RBC (Auto) (0.0-6.0) /HPF U Epithel Cells (Auto) (0-13.0) /HPF Urine Mucus /HPF Salicylates (2.8-20.0) mg/dL Urine Opiates Screen Presumptive negative Urine Methadone Screen Presumptive negative Acetaminophen (10.0-30.0) ug/mL Ur Barbiturates Screen Presumptive negative Ur Phencyclidine Scrn Presumptive negative Ur Amphetamines Screen Presumptive positive U Benzodiazepines Scrn Presumptive positive Urine Cocaine Screen Presumptive negative U Marijuana (THC) Screen Presumptive positive Drugs of Abuse Note Disclamer Plasma/Serum Alcohol (0-0.07) % - Medical Decision Making n/v/d CT suggestive of colitis, ileus, or enteritis. No signs of diverticulitis or inflammation of the appendix. Patient does not have fever or leukocytosis. Will be treated with Levaquin 5 days and Zofran when necessary. IV fluids initiated Suicidal ideation with plan Likely linked to her homelessness 1013 and transfer forms signed Awaiting mental health evaluation - Differential Diagnosis dehydration, gastroenteritis, colitis, suicidal, depression, homelessness Critical Care Time: No Critical care attestation.: If time is entered above; I have spent that time in minutes in the direct care of this critically ill patient, excluding procedure time. ED Disposition Clinical Impression: Gastroenteritis, Colitis, Suicidal ideation, Medical clearance for psychiatric admission, Amphetamine abuse Disposition: [id number]/TX-[id number] PSY HOSP/PSY UNIT Is pt being admited?: No Condition: Stable Time of Disposition: 02:02 (awaiting wm)
--- NOTE | 2018-05-27 01:40 | Cat Scan Report ---
FINAL REPORT PROCEDURE: CT ABDOMEN PELVIS W CON TECHNIQUE: Computerized axial tomography of the abdomen and pelvis was performed after the IV injection of iodinated nonionic contrast. HISTORY: Nausea, vomiting, diarrhea. COMPARISON: No prior studies are available for comparison. FINDINGS: Visualized lower thorax: 4.3 mm right middle lobe pulmonary nodule (image 8 series 2). 3.7 mm right lower lobe pulmonary nodule (image 13 series 2). Liver: Normal size and attenuation. Spleen: Normal size and attenuation. Gallbladder and biliary system: Cholecystectomy. Pancreas: Normal. Adrenals: Normal. Kidneys: 4 mm low-attenuation right renal lesion. GI tract: Moderately distended duodenum. Prominent mildly thick-walled loops of jejunum. Fluid-filled loops of ileum. Air-filled appendix measures 6 mm. Fluid-filled colon alternating with areas of more narrowed colon. Scattered colonic diverticula. Lymph nodes and mesentery: Normal. Vasculature: Mild atherosclerosis. Bladder: Normal. Reproductive organs: Normal. Peritoneum: No free fluid. Musculoskeletal structures: Mild levo scoliotic curvature. Osteopenia. Multilevel osteophytes. L4-5 disc bulge, ligamentum flavum thickening, and vacuum disc change. Mild to moderate canal stenosis. L5-S1 disc bulge. 4 mm sclerotic T11 lesion. Mild left slightly greater than right narrowing of the hip joints with osteophytes. Other: Pelvic phleboliths. IMPRESSION: Pulmonary nodules, consider dedicated thoracic imaging. Low-attenuation right renal lesion likely cyst. Moderately distended duodenum. Prominent mildly thick-walled loops of jejunum. Findings likely ileus or enteritis rather than obstruction, consider attention on followup if this is of continued clinical concern. Air-filled appendix measures 6 mm, top-normal. No surrounding inflammation. There overlap in the imaging appearance of normal and abnormal appendix. Consider further evaluation and followup if there is continued clinical concern for appendiceal pathology. Fluid-filled colon alternating with areas of more narrowed colon, likely peristalsis. Consider colitis. Scattered colonic diverticula. Consider attention on followup exam if there is concern for subtle underlying lesion. Other incidental findings as above.
[2018-05-27] MEDS ORDERED: LEVAQUIN PO ONE (01:56)
[2018-05-27] MEDS ORDERED: PROAIR IH PRN (01:59)
[2018-05-27] MEDS ORDERED: PROVENTIL IH PRN (02:12)
[2018-05-27 08:54] LABS: Bilirubin,Urine NEG (Negative); Blood,Urine SM (Negative); Color,Urine Yellow (Yellow); Mucus,Urine FEW /HPF; Urobilinogen,Urine < 2.0 mg/dL (<2.0)
[2018-05-27 09:13] LABS: Cocaine Screen,Urine PRESUMPTIVE NEGATIVE; Methadone Screen,Urine PRESUMPTIVE NEGATIVE; Opiate Screen,Urine PRESUMPTIVE NEGATIVE
[2018-05-27] MEDS: NEURONTIN PO SCH ×2 (09:24→16:58)
[2018-05-27] MEDS: GLUCOPHAGE PO SCH ×2 (09:24→16:58)
[2018-05-27] MEDS: LEVAQUIN PO SCH ×2 (09:25→09:59)
[2018-05-27 09:42] LABS: Amphetamine Screen,Urine PRESUMPTIVE POSITIVE; Benzodiazepines Screen,Urine PRESUMPTIVE POSITIVE; Cannabinoid Screen,Urine PRESUMPTIVE POSITIVE
[2018-05-27] MEDS ORDERED: NORVASC PO SCH (10:00)
[2018-05-27] MEDS ORDERED: PROzac PO SCH (10:00)
--- NOTE | 2018-05-27 15:25 | Consultation ---
History of Present Illness - Reason for Consult Consult date: 05/27/18 Reason for consult: Mental Health Evaluation Requesting physician: NE HAGAN - Chief Complaint Chief complaint: "I am depressed" - History of Present Psychiatric Illness 73-year-old female with a past medical history of COPD, diabetes, depression, gastric ulcers, previous cholecystectomy and previous hysterectomy, and chronic back pain presents to the Hospital complaining of nausea, vomiting and diarrhea 2 days. Today the patient is calm, cooperative, but depressed about her medical issues. She stated that she have been suicidal for a "couple" days. She acknowledged self medicating with substances to try to lessen her depression. She rate her depression 8/10, with 10 being the worse. She continue to endorse SI's. She was asked if there were any other concerns, she stated, "No." She did admit to a previous suicide attempt in the past, but denies a suicide plan now when asked. She denies HI's and AVH's. She denies a poor appetite and erratic sleep. She denies alcohol consumption (etoh). She stated that she takes Xanax 2 to 3 times a day. Medications and Allergies Allergies Allergy/AdvReac Type Severity Reaction Status Date / Time Penicillins Allergy Anaphylaxis Verified 02/19/18 11:56 Home Medications Medication Instructions Recorded Confirmed Last Taken Type FLUoxetine HCL [PROzac] 40 mg PO QDAY 02/05/18 02/20/18 02/20/18 05:30 History Gabapentin [Neurontin] 300 mg PO Q8HR 02/05/18 02/20/18 02/19/18 History Metformin HCl [Glucophage] 500 mg PO BID 02/05/18 02/20/18 02/19/18 History amLODIPine [Norvasc] 5 mg PO DAILY 02/05/18 02/20/18 02/20/18 05:30 History hydrOXYzine HCl [Hydroxyzine HCl] 25 mg PO DAILY 02/05/18 02/20/18 02/20/18 05: 30 History ALBUTEROL Inhaler (OR & NICU) 2 puff IH QID PRN 02/20/18 02/20/18 02/20/18 05: 30 History [Proair] Active Meds: Active Medications Albuterol (Proventil) 2.5 mg IH QIDRT PRN PRN Reason: Shortness Of Breath Amlodipine Besylate (Norvasc) 5 mg PO DAILY [facility] Last Admin: 05/27/18 09:58 Dose: 5 mg Fluoxetine HCl (Prozac) 40 mg PO QDAY [facility] Last Admin: 05/27/18 09:58 Dose: 40 mg Gabapentin (Neurontin) 300 mg PO Q8HR [facility] Last Admin: 05/27/18 09:24 Dose: 300 mg Levofloxacin (Levaquin) 500 mg PO QDAY [facility] Stop: 05/30/18 10:01 Last Admin: 05/27/18 09:59 Dose: Not Given Metformin HCl (Glucophage) 500 mg PO BIDDIAB [facility] Last Admin: 05/27/18 09:24 Dose: 500 mg Past psychiatric history - Past Medical History Past Medical History: diabetes, hypertension Past Surgical History: No surgical history - past Psychiatric treatment and history psychiatric treatment history: Hx of depression. Denies a fam psy hx. Mental Status Exam - Vital signs Last Vital Signs Temp 98.0 F 05/26/18 23:03 Pulse 99 H 05/26/18 23:03 Resp 16 05/27/18 00:00 BP 162/91 05/26/18 23:03 Pulse Ox 97 05/26/18 23:03 - Exam Narrative exam: MSE: Appearance: calm, cooperative Behavior: regular eye contact Speech: regular rate and low tone Mood: "depressed" Affect: congruent to mood Thought Process: circumstantial Thought Content: denies HI's and AVH's Motor Activity: ambulatory Cognition: A/O x 3 Insight: variable Judgment: variable Results Result Diagrams: 05/26/18 13:10 05/26/18 13:10 Abnormal lab results 05/26/18 05/27/18 Range/Units 13:10 07:44 Hct 43.0 H (30.3-42.9) % Plt Count 464 H (140-440) K/mm3 [place] % (Auto) 9.2 H (0.0-7.3) % Baso % (Auto) 1.9 H (0.0-1.8) % Ur Specific [place] 1.060 H (1.003-1.030) All other labs normal. Assessment and Plan Assessment and plan: Impression: MDD. Substance Use DO (amphetamines). Cannabis Use DO. Today the patient is calm, cooperative, but depressed about her medical issues. The patient endorses SI's. The patient was positive for benzos. DDx: R/O Bipolar DO, R/O Substance Induced Mood DO Recommendation/Plan: Continue 1013 with placement with pending placement to [facility]. Continue Prozac 40 mg PO Daily for depression/anxiety and start Xanax 0.25 mg Q8hrs PRN for anxiety. Discussed possible suicidality/ medication induced dottie with patient reference Prozac.
[2018-05-27] MEDS ORDERED: XANAX PO PRN (15:38)
[2018-05-27] MEDS ORDERED: ZOFRAN ODT PO PRN (16:31)
[2018-05-27] MEDS ORDERED: IMODIUM PO SCH ×2 (16:33→16:34)
[2018-05-28 00:07] VITALS: BP 135/81
--- NOTE | 2018-05-28 14:48 | Progress Note ---
Subjective - Reason for Consult Consult date: 05/28/18 Mental Status Exam - Vital signs Last Vital Signs Temp 98.4 F 05/27/18 19:30 Pulse 90 05/27/18 19:30 Resp 16 05/27/18 19:30 BP 135/81 05/27/18 19:30 Pulse Ox 95 05/27/18 19:30
== END 2018-05-27 23:30 ==
LOC: ED 12:21
DX: K52.9 Noninfective gastroenteritis and colitis, unspecified (principal); R45.851 Suicidal ideations; F15.10 Other stimulant abuse, uncomplicated; I50.9 Heart failure, unspecified; E11.9 Type 2 diabetes mellitus without complications; J44.9 Chronic obstructive pulmonary disease, unspecified; J32.9 Chronic sinusitis, unspecified; F17.200 Nicotine dependence, unspecified, uncomplicated; F12.10 Cannabis abuse, uncomplicated; Z90.710 Acquired absence of both cervix and uterus; Z90.49 Acquired absence of other specified parts of digestive tract; Z88.0 Allergy status to penicillin
CPT/HCPCS: 36415; 74177; 80053; 80307; 81001; 83690; 85007; 85025; 96374; 99285; G0480; J2405; J7040; Q9967; 80320; Q0162